=== PATIENT | female | born 1950 | race Caucasian/White ===

== ENCOUNTER 2016-09-21 13:15 | Outpatient (RCR) | payer MEDICARE, OTHER ==
[~2016-09-21 13:15] MED LIST: AMBIEN 10MG10 M1 PO; AMBIEN 10MG10 MG PO; BONIVA PO; CALCIUM1 CAP PO; CETIRIZINE PO; EXCEDRIN IB200 MG PO; GABAPENTIN; NEXIUM PO; ONE DAILY 50 PL1 TAB PO; ZOLOFT PO
== END 2016-11-13 12:52 | disposition home or self-care (01) ==
LOC: WSPT 13:15
DX: M54.5 Low back pain (principal); M54.16 Radiculopathy, lumbar region; M41.86 Other forms of scoliosis, lumbar region
CPT/HCPCS: G8981-GP; G8982-GP; G8983-GP

== ENCOUNTER → 2016-10-03 | Outpatient (CLI) | payer MEDICARE, OTHER | LOC: COL.CARD 09-26 13:00 | DX: I49.8 Other specified cardiac arrhythmias (principal) ==

== ENCOUNTER 2017-08-30 14:00 | Outpatient (RCR) | payer MEDICARE, OTHER | END 2017-11-12 | disposition home or self-care (01) | LOC: WSPT | DX: S43.421D Sprain of right rotator cuff capsule, subsequent encounter (principal) | CPT/HCPCS: G8978-GP; G8979-GP ==

== ENCOUNTER → 2019-02-20 | Outpatient (CLI) | payer MEDICARE, OTHER | LOC: COL.RAD 14:23 | DX: K21.9 Gastro-esophageal reflux disease without esophagitis (principal); R07.89 Other chest pain; K22.4 Dyskinesia of esophagus ==

== ENCOUNTER 2020-07-04 15:15 | Outpatient (RCR) | payer MEDICARE, OTHER | END 2020-07-11 | disposition home or self-care (01) | LOC: WSPT | DX: M51.26 Other intervertebral disc displacement, lumbar region (principal); M41.86 Other forms of scoliosis, lumbar region ==

== ENCOUNTER 2020-08-25 13:45 | Outpatient (RCR) | payer MEDICARE, OTHER | END 2020-10-11 | disposition home or self-care (01) | LOC: WSC | DX: M53.3 Sacrococcygeal disorders, not elsewhere classified (principal); M25.511 Pain in right shoulder ==

== ENCOUNTER 2022-01-02 16:10 | Outpatient (RCR) | payer MEDICARE, OTHER | END 2022-01-04 | LOC: WSPT | DX: M54.9 Dorsalgia, unspecified (principal) ==

== ENCOUNTER 2022-02-01 12:45 | Outpatient (RCR) | payer MEDICARE, OTHER | END 2022-02-04 | disposition home or self-care (01) | LOC: WSC | DX: M54.9 Dorsalgia, unspecified (principal) ==

== ENCOUNTER 2022-02-26 13:30 | Outpatient (RCR) | payer MEDICARE, OTHER | END 2022-03-07 | disposition home or self-care (01) | LOC: WSPT | DX: M54.9 Dorsalgia, unspecified (principal) ==

== ENCOUNTER 2023-12-27 13:29 | Outpatient (RCR) | payer MEDICARE, OTHER | END 2024-01-05 | disposition home or self-care (01) | LOC: WSPT | DX: Q74.2 Other congenital malformations of lower limb(s), including pelvic girdle (principal); M76.822 Posterior tibial tendinitis, left leg; Z98.890 Other specified postprocedural states ==